=== PATIENT | male | born 1945 | race African-American/Black ===

== ENCOUNTER 2016-09-07 22:59 | Inpatient (IN) | payer OTHER ==
[2016-09-07] MEDS ORDERED: ASPIRIN (CHEWABLE) 81 MG TAB PO ONE (23:13)
--- NOTE | 2016-09-07 23:16 | EDPRACDOC ---
- General Information Chief Complaint: Chest Pain Stated Complaint: RESPIRATORY Time Seen by Provider: 09/07/16 23:12 Home Medications: Home Medications Allopurinol 200 mg PO HS 07/06/15 Artificial Tears 1 drop OS QID 07/06/15 Loratadine 10 mg PO HS 07/06/15 Magnesium Oxide [Mag-Ox] 400 mg PO BID 07/06/15 Ranitidine HCl [Zantac] 300 mg PO BID 07/06/15 Simvastatin [Zocor] 40 mg PO DAILY 07/06/15 Sotalol HCl [Sotalol] 80 mg PO Q12H 07/06/15 Spironolactone [Aldactone] 25 mg PO BID 07/06/15 Tamsulosin HCl [Flomax] 0.8 mg PO QHS 07/06/15 Warfarin Sodium 2 mg PO .Q48H/ALTER/W/1MG 01/15/16 Warfarin Sodium [Coumadin] 1 mg PO .Q48H/A;TER/W/2MG 01/15/16 Albuterol Sulfate [Ventolin Hfa] 2 puff INH QID PRN 03/11/16 Finasteride [Proscar] 5 mg PO HS 03/11/16 Ipratropium [place] [Atrovent] 2 puff INH QID PRN 03/11/16 Metoprolol Succinate (XL) [Toprol Xl] 37.5 mg PO HS 03/11/16 Mometasone/Formoterol [Dulera 200 Mcg/5 Mcg Inhaler] 1 puff INH BID 03/11/16 Torsemide 20 mg PO DAILY 03/11/16 Acetaminophen [Acetaminophen ER] 650 mg PO TID 04/17/16 Colchicine [Colcrys] 0.6 mg PO .[id number] 04/17/16 Allergies/Adverse Reactions: Allergies Allergy/AdvReac Type Severity Reaction Status Date / Time codeine Allergy See Verified 04/17/16 19:21 Comments furosemide [From Lasix] Allergy Rash-Genera Verified 04/17/16 19:21 lized Penicillins Allergy Rash-Genera Verified 04/17/16 19:21 lized - History of Present Illness HPI: PATIENT NOTES CHEST PAIN AND PALPITATIONS TODAY. MILD SOB. DENIES RECENT STRESS TEST. HX OF ATRIAL FIB AND CHF. NOTHING MAKES WORSE. NITRO IMPROVED PAIN AT ALF. Chest Pain Location: Reports: Substernal Pain Radiation: Reports: None Symptoms Occur: Reports: Gradually Cardiac Risk Factors: Reports: Smoker (QUIT IN 1969), Family History, Hyperlipidemia, Hypertension Cardiac History of: Reports: Other (AFIB) PE Risk Factors: Reports: None Medications within 24 Hours: Reports: Nitro Prehospital Care: Reports: SL NTG Pain Came On: Reports: Suddenly Pain Status: Resolved Pain Description: Reports: Pressure Pain Severity: Mild Pain Worsens With: Reports: Nothing Pain Improves With: Reports: Nitroglycerin Associated Signs and Symptoms: Reports: SOB, Palpitations ED Past Medical History - History Reviewed Yes Nurses notes reviewed and agree except as marked Travel Outside of [place] in the Last 3 Months?: No - Patient Medical History Cardiac History: Reports: Atrial Fibrillation, Hypertension, Congestive Heart Failure, Heart Attack, Hypercholesterolemia Respiratory History: Reports: COPD GI/ History: Reports: Renal Disease (CKD STAGE IV) Psychological History: Denies: Depression - Social Medical History Smoking Status: Former smoker ETOH: None Substance Abuse: None Lives In: Other ([facility] EDM Review of Systems - Review of Systems ROS Negative Except as Marked: Yes All systems reviewed and were negative except as marked Constitutional: Fatigue. negative: Chills, Fever, Loss of Appetite, Weakness Eyes: No Symptoms Reported. negative: Redness, Blurred Vision, Double Vision, Discharge, Pain, Light Sensitive, Photophobia Ears: No Symptoms Reported. negative: Pain, Hearing Loss, Drainage, Ear Pulling Throat: No Symptoms Reported. negative: Pain, Swelling Nose: No Symptoms Reported. negative: Congestion, Bleeding, Discharge, Injection, Swelling, Deformity, Ecchymosis, Tender, Abrasion, Laceration Mouth: No Symptoms Reported. negative: Pain, Drooling Respiratory: No Symptoms Reported. negative: Cough, Brassy Cough, Barky Cough, Shortness of Breath, Wheezing, Hemoptysis Cardiovascular: Chest Pain. negative: Cyanosis, Edema, Orthopnea, Palpitations , PND, Syncope, Skin Mottling Gastrointestinal: No Symptoms Reported. negative: Pain, Constipation, Nausea, Vomiting, Diarrhea, Melena, Formula Intolerance Genitourinary: No Symptoms Reported. negative: Dysuria, Hematuria, Frequency, Discharge, Bleeding, Testicular Pain, Neurological: No Symptoms Reported. negative: Headache, Dizziness, Seizure, Numbness, Weakness, Speech Difficulty, Gait Difficulty Musculoskeletal: No Symptoms Reported. negative: Neck, Chestwall, Ribs, Back, Shoulder, Arm, Elbow, Forearm, Wrist, Hand, Pelvis, Hip, Femur, Knee, Leg, Ankle , Foot Integumentary: No Symptoms Reported. negative: Itching, Rash, Bruising, Wound Allergic/Immunologic: No Symptoms Reported. negative: Hives, Itching Hematologic: No Symptoms Reported. negative: Lymphadenopathy, Easy Bruising, Easy Bleeding Endocrine: No Symptoms Reported. negative: Weight Gain, Weight Loss Psychiatric: No Symptoms Reported. negative: Anxiety, Depression, Hallucinations, Insomnia, Suicidal - Physical Exam Constitutional: Alert (Awake), No apparent distress Oriented to: Time, Person, Place Last recorded Vital Signs: Oxygen Pulse Oxygen Saturation O2 Device Oxygen Flow Rate Fraction of Inspired Oxygen ( FIO2) - HEENT Head: Normal ( normocephalic) Eye Exam: Normal (PERRL, EOMI, Sclera white) Oropharynx: Normal (Pharynx:Moist without exudate,Gums-no swelling) Tympanic Membrane: Normal ENT EAC: Normal TMJ: Normal Nose: No Symptoms Reported (septum midline) Neck: Normal (FROM, trachea at midline) - Respiratory/Cardiovascular Respiratory: Normal - CTA (BBS clear to auscultation without adventitious sounds ) Cardiovascular: Normal (RRR without murmur, gallop or rub) - GI Auscultation: Normal (NABS) Palpation: Normal (Soft,No rebound or guarding, non distended) Tenderness: Non tender Dunlap's Sign: Negative - Musculoskeletal Back: Normal (Non-Tender) Extremities: Normal (Normal tone, Pulses 2+ No cyanosis or edema, FROM) - Integumentary Skin: Normal, Warm, Dry Lymphatics: Normal (no adenopathy) - Neurologic Memory Impaired: Normal Motor Function: Normal (Normal tone, Pulses 2+ No cyanosis or edema, FROM) Cranial Nerve: Normal (CN II-X11 intact sensation, strength 5/5) Cerebellar: Normal Mood Description: Normal Perception: Normal - Differential Diagnosis Angina - Action ASA given in the ED: Yes - Results 09/07/16 23:30 09/07/16 23:30 - EKG EKG #1 EKG Time: 23:19 -: Yes EKG interpreted by me Rate: bpm: 83 Morris: LAD Rhythm: NSR, PVCs Block: IVCD Hypertrophy: None ST: Normal - Departure Yes I personally saw and evaluated the patient. Disposition: Admit IP To This Hospital Condition: Stable Final Diagnosis: Unstable angina CHF (congestive heart failure) Qualifiers: Congestive heart failure type: unspecified congestive heart failure type Congestive heart failure chronicity: acute Qualified Code(s): I50.9 - Heart failure, unspecified Instructions: Chest Pain (ED), *Heart Failure (Activity, Diet, Worsening Symptoms, Weight Monitoring)(ED) Education/Counseling Given To: Patient Education/Counseling Given Regarding: Diagnosis, Treatment, Prognosis Decision to Admit Time: 00:00 Decision to admit date: 09/08/16 Decision to admit: from ED - Physician Consulted Hospitalist Time Called: 00:00 Provider Called: Suraj Schaeffer Time License Registration Examiner Returned Call: 00:00
[2016-09-07 23:37] LABS: AUTOMATED BASOPHIL 1.3 % (0-2); AUTOMATED EOSINOPHIL 4.5 % (0-5); AUTOMATED LYMPH 33.4 % (17-44); AUTOMATED MONOCYTE 11.1 % (3-10); AUTOMATED NEUTROPHIL 49.7 % (45-76); MPV 9.9 fL (7.4-10.4)
[2016-09-07 23:46] LABS: CALCIUM 8.9 MG/DL (8.4-10.2); CREATININE 1.9 MG/DL (0.66-1.25); TOTAL PROTEIN 6.5 G/DL (6.3-8.2)
[2016-09-07 23:47] LABS: PARTIAL THROMB. TIME 28.9 SEC (22-35); PT-INR 1.5
--- NOTE | 2016-09-07 23:56 | DIRPT ---
CLINICAL DATA: Subacute onset of generalized chest pain and tachycardia. Initial encounter. EXAM: PORTABLE CHEST 1 VIEW COMPARISON: Chest radiograph performed 04/17/2016 FINDINGS: The lungs are well-aerated. Mild vascular congestion is noted. There is no evidence of focal opacification, pleural effusion or pneumothorax. The cardiomediastinal silhouette is borderline enlarged. A pacemaker/AICD is noted overlying the left chest wall, with leads ending overlying the right atrium and right ventricle. No acute osseous abnormalities are seen. IMPRESSION: Mild vascular congestion and borderline cardiomegaly. Lungs remain grossly clear. Electronically Signed By: Tremaine Apple M.D. On: 09/07/2016 23:53
[2016-09-08] MEDS ORDERED: ENOXAPARIN 30 MG/0.3 ML PFS SQ SCH
[2016-09-08] MEDS ORDERED: ENOXAPARIN 100 MG PFS SQ SCH
[2016-09-08] MEDS ORDERED: FUROSEMIDE 40 MG/4 ML VIAL IV ONE (00:01)
--- NOTE | 2016-09-08 01:29 | HISTPHYS ---
- Chief Complaint chest pain - History of Present Illness PRIMARY CARE PROVIDER: [facility] physician HPI: The patient is a 71 yo man who presents with sudden palpitations and heart not feeling right, along with shortness of breath and chest pressure. He has had episodes before, first one after Echo, and he did see the doctor; the doctor did not change any of his medication, he did tell him to take 2 nitroglycerin tabs whenever it started. He said he usually noticed it when he was in bed, and that he would notice that the bed was rocking and then he would realize that he was causing the rocking because his heart was beating so hard. Tonight he had another episode, and he took 2 nitroglycerin pills but it didn't stop, so he came to the emergency department. He felt a pressure/heaviness in his chest. Onset: This episode started overnight, but he has had previous episodes not as severe over the last 2-3 weeks. Duration: intermittent. Location: substernal. Radiation: none. Character: 09/03. Pressure/heaviness. Alleviated by: Nothing. Exacerbated by: Nothing. Associated Symptoms: Shortness of breath. No diaphoresis. Fatigue and generalized weakness today. No fever or chills. Has felt hot today. No weight gain or swelling in legs. Nausea today but no vomiting. Intermittent mild coughing and wheezing. Has felt like he has had increased abdominal girth lately and notes his pants are tighter. Treatments: none at home except usual medications. The patient reports he has CHF and has had worsening shortness of breath with increased abdominal girth. He reports his heart issues were severe enough that he was on the transplant list many years ago but removed himself from the list when his friend had a heart transplant and shortly thereafter. - Medical History Cardiac History: Reports: Coronary Artery Disease, Hypertension, Congestive Heart Failure (systolic. Severe enough he was on transplant list.), Cardiac Catheterization ([facility] in [place] and [facility]. Approx 2011 and 2012.), Hypercholesterolemia, Pacemaker (2nd pacemaker in May 2009 at [facility] GI/ History: Reports: Renal Disease (CKD stage 3. Baseline Cr 1.5-2.), BPH Psychological History: Denies: Depression - Surgical History Reports: Cardiac Catheterization (and 2nd pacemaker May 2009 in [place], [place]) - Medictions/Allergies Allergies codeine Allergy (Verified 09/08/16 00:08) See Comments effects kidneys furosemide [From Lasix] Allergy (Verified 09/08/16 00:08) Rash-Generalized Penicillins Allergy (Verified 09/08/16 00:08) Rash-Generalized Current Medication List: Reviewed Home Medications Allopurinol 200 mg PO HS 07/06/15 Artificial Tears 1 drop OS QID 07/06/15 Loratadine 10 mg PO HS 07/06/15 Magnesium Oxide [Mag-Ox] 400 mg PO BID 07/06/15 Ranitidine HCl [Zantac] 300 mg PO BID 07/06/15 Simvastatin [Zocor] 40 mg PO DAILY 07/06/15 Sotalol HCl [Sotalol] 80 mg PO Q12H 07/06/15 Spironolactone [Aldactone] 12.5 mg PO BID 07/06/15 Tamsulosin HCl [Flomax] 0.8 mg PO QHS 07/06/15 Warfarin Sodium 2 mg PO .Q48H/ALTER/W/1MG 01/15/16 Warfarin Sodium [Coumadin] 1 mg PO .Q48H/ALTER/W/2MG 01/15/16 Albuterol Sulfate [Ventolin Hfa] 2 puff INH QID PRN 03/11/16 Finasteride [Proscar] 5 mg PO DAILY 03/11/16 Ipratropium [place] [Atrovent] 2 puff INH QID PRN 03/11/16 Metoprolol Succinate (XL) [Toprol Xl] 37.5 mg PO HS 03/11/16 Mometasone/Formoterol [Dulera 200 Mcg/5 Mcg Inhaler] 1 puff INH BID 03/11/16 Torsemide 10 mg PO BID 03/11/16 Acetaminophen [Acetaminophen ER] 650 mg PO TID 04/17/16 Colchicine [Colcrys] 0.6 mg PO .[id number] 04/17/16 - Family History Reports: Hypertension (Mother), Cardiac Disorders (Mother: CHF), Other ( Grandfather in sleep.) - Social History Smoking Status: Former smoker (Quit .) Social History: Denies: Alcohol Use (occasional), Substance Use Disorder - Review of Systems GENERAL: No Fever, chills, or diaphoresis. Positive for fatigue/malaise. HEENT: No ear pain or discharge. No nasal discharge or bleeding. No throat pain or swelling. No eye pain or eye redness. RESPIRATORY: Intermittent mild coughing and wheezing. Shortness of breath. CARDIOVASCULAR: Chest pain and palpitations. GI: Nausea today but no vomiting. No abdominal pain, nausea, vomiting, diarrhea , constipation, or bloody stool. NEUROLOGICAL: No headache or focal weakness. INTEGUMENT: no rashes, itching, or lesions. LYMPHATIC SYSTEM: no lymph node swelling or pain. MUSCULOSKELETAL: no pain or joint swelling. GENITOURINARY: No dysuria or hematuria. ENDOCRINE: No polyuria or polydipsia. HEME: No chronic anemia, bleeding, or easy bruising. - Physical Exam Vital Signs: Initial Vitals Temperature 97.5 F 09/07/16 23:20 Pulse Rate 75 09/07/16 23:20 Respiratory Rate 20 09/07/16 23:20 Blood Pressure 101/57 L 09/07/16 23:20 Pulse Oxygen Saturation 98 09/07/16 23:20 Vital Signs - 24 hr 09/07/16 23:20 Temperature 97.5 F Pulse Rate 75 Respiratory 20 Rate Blood Pressure 101/57 L Pulse Oxygen 98 Saturation Weight: 88.5 kg Height: 5 feet 11 inches BMI: 27.2 - Other Exam Other Exam Findings: GENERAL: Ill-appearing, well nourished, in acute distress. HEENT: Normocephalic, atraumatic; pupils equal and round. Nares patent, without discharge or bleeding. No oropharyngeal lesions or erythema. Mucous membranes are dry. NECK: is supple, no masses, trachea midline. RESPIRATORY: Clear to auscultation bilaterally. Chest wall movements are symmetric. No use of accessory muscles to breathe. No rhonchi. Decreased breath sounds in bases. Faint rales. CARDIOVASCULAR: Normal S1, S2. Murmur 3/6 systolic. No rubs, or gallops. PMI non -displaced. Carotids: no carotid bruits. No bradycardia or tachycardia. DP pulses decreased but palpable bilaterally. GI: soft, nontender, non-distended, normal active bowel sounds. No hepatosplenomegaly. INTEGUMENT: Clean, dry, and intact. No rashes. Faint ecchymoses over upper aspect of back, linear and extending from lateral left to mid right back. MUSCULOSKELETAL: Moving all extremities. No cyanosis. No clubbing. Edema: none bilaterally. NEUROLOGICAL: Cranial nerves 2-12 grossly intact. Motor 5/5 throughout. Reflexes : 2+ bilaterally. Babinski: toes downgoing bilaterally. Intact Finger to nose. Sensory grossly intact to light touch. Intact rapid alternating movements bilaterally. No pronator drift. PSYCHIATRIC: Fully oriented. Normal and appropriate affect. LYMPHATIC: No cervical lymphadenopathy. No supraclavicular lymphadenopathy. - Lab Results Laboratory Results - last 24 hr 09/07/16 09/07/16 09/07/16 23:30 23:30 23:30 WBC 6.9 RBC 5.23 Hgb 13.4 L Hct 41.2 L MCV 79 L MCH 25.7 L MCHC 32.6 L RDW 17.7 H Plt Count 165 MPV 9.9 Neut % (Auto) 49.7 Lymph % (Auto) 33.4 Vance % (Auto) 11.1 H Eos % (Auto) 4.5 Baso % (Auto) 1.3 Absolute Neuts (auto) 3.38 Absolute Lymphs (auto) 2.28 PT 15.3 H INR 1.5 APTT 28.9 Sodium 141 Potassium 3.2 L Chloride 101 Carbon Dioxide 27 Anion Gap 16 BUN 32 H Creatinine 1.90 H Estimated GFR (MDRD) 42 L Glucose 106 H Calculated Osmolality 278 Calcium 8.9 Corrected Calcium 9.0 Total Bilirubin 1.3 AST 16 L ALT 28 Alkaline Phosphatase 61 Troponin I 0.01 Fgd-[id number]-Izfxairzlyh Pept 7360 H Total Protein 6.5 Albumin 3.9 - Diagnostic Findings DIAGNOSTIC DATA: EK bpm. Sinus rhythm with first-degree AV block with frequent PVCs and fusion complexes. Left axis deviation. Incomplete right bundle branch block. Septal infarct, age undetermined. T-wave abnormality, consider lateral ischemia. T-wave inversion in lead 1. Minimal ST depression in leads V5 and V6. Reviewed EKG personally. IMAGING: Chest x-ray, viewed personally: EXAM: PORTABLE CHEST 1 VIEW COMPARISON: Chest radiograph performed 04/17/2016 FINDINGS: The lungs are well-aerated. Mild vascular congestion is noted. There is no evidence of focal opacification, pleural effusion or pneumothorax. The cardiomediastinal silhouette is borderline enlarged. A pacemaker/AICD is noted overlying the left chest wall, with leads ending overlying the right atrium and right ventricle. No acute osseous abnormalities are seen. IMPRESSION: Mild vascular congestion and borderline cardiomegaly. Lungs remain grossly clear. - Assessment (1) Acute on chronic systolic congestive heart failure I50.23 - ACUTE ON CHRONIC SYSTOLIC (CONGESTIVE) HEART FAILURE Acute Present on Admission: Yes The patient reports he has CHF and has had worsening shortness of breath with increased abdominal girth. He reports his heart issues were severe enough that he was on the transplant list many years ago but removed himself from the list when his friend had a heart transplant and shortly thereafter. The patient has both acute and chronic heart failure. The acute component is thought to be mild. Heart failure type: presumed systolic. Echocardiogram results from past: none available. Plan: Admit to PCU with telemetry. CHF order set. Diet of 2 g Na. Daily weights with strict I/O's. No IVF unless patient is NPO. As tolerated, give beta eb, OLEG inhibitor or ARB. NO LASIX due to documented allergy causing rash. He is able to take torsemide, so will increase his home dose. Replace potassium. Monitor heart rate, blood pressure, and respiratory status carefully. Provide support with oxygen as needed. Provide teaching regarding heart failure, 2g Na diet, daily weights, signs of acute heart failure. (2) Chest pain R07.9 - CHEST PAIN, UNSPECIFIED Acute Present on Admission: Yes Rule out myocardial infarction. Plan: Obtain cardiac enzymes x 3. Place patient on telemetry. Give patient oxygen, aspirin. Give nitroglycerin, and morphine as needed for chest pain. Give statin. Stress test has been ordered for the morning. Patient has been advised, if the stress test is negative, to follow up with the primary care provider for evaluation of other potential causes of the chest pain. (3) Anticoagulant long-term use Z79.01 - DIRECTOR OF PHYSICAL EDUCATION (CURRENT) USE OF ANTICOAGULANTS Acute Present on Admission: Yes Takes warfarin for a fib. INR 1.5 on admission. Plan: Increase warfarin dose. Will give low dose lovenox in addition until INR is 2. Daily INR. (4) Hypokalemia E87.6 - HYPOKALEMIA Acute Present on Admission: Yes Replace potassium with KCl. Check magnesium level and replace as needed. (5) Chronic kidney disease, stage 3, mod decreased GFR N18.3 - CHRONIC KIDNEY DISEASE, STAGE 3 (MODERATE) Chronic Present on Admission: Yes Baseline Cr is 1.5 -2. Admission Cr is 1.9. Plan: Avoid nephrotoxins. Add OLEG inhibitor if blood pressure is not too low. (6) Dyspnea on exertion R06.09 - OTHER FORMS OF DYSPNEA Acute Present on Admission: Yes Acute on chronic issue. Patient is concerned about his gradually worsening dyspnea, especially with exertion. Plan: Echocardiogram. - Plan * Patient had cardiac catheterizations and possibly an echocardiogram at [facility] and [facility] in 2011 and 2012. Requested records. Case Care Discussed with: Patient, Nursing Staff Total Time: 60 min
[2016-09-08] MEDS ORDERED: NITROGLYCERINE 0.4 MG TAB SL PRN (01:30)
[2016-09-08] MEDS ORDERED: POTASSIUM CHLORIDE 20 MEQ TAB PO ONE (01:35)
[2016-09-08] MEDS ORDERED: BENZONATATE 100 MG PERLES PO PRN (03:06)
[2016-09-08] MEDS ORDERED: SIMETHICONE 80 MG TAB PO PRN (03:06)
[2016-09-08] MEDS ORDERED: Docusate Sodium 100 MG CAP PO PRN (03:06)
[2016-09-08] MEDS ORDERED: BISACODYL 5 MG TAB PO PRN (03:06)
[2016-09-08] MEDS ORDERED: ONDANSETRON HCL 4 MG/2 ML VIAL IV PRN (03:06)
[2016-09-08] MEDS ORDERED: ACETAMINOPHEN 325 MG/TAB TABLET PO PRN (03:06)
[2016-09-08] MEDS ORDERED: SENNA CONCENTRATE TAB PO PRN (03:06)
[2016-09-08] MEDS ORDERED: ACETAMINOPHEN 325 MG SUPP PR PRN (03:06)
[2016-09-08] MEDS ORDERED: TEMAZEPAM 15 MG CAP PO PRN (03:06)
[2016-09-08] MEDS ORDERED: PROMETHAZINE 25 MG/ML VIAL IV PRN (03:06)
[2016-09-08] MEDS ORDERED: GUAIFEN 100 MG-DEXTROMETH 10 MG PER 5 ML PO PRN (03:06)
[2016-09-08] MEDS ORDERED: MORPHINE 2 MG/ML INJECTION IV PRN (03:07)
[2016-09-08] MEDS ORDERED: ALBUTEROL 0.083% 3 ML NEB NEB PRN (03:10)
[2016-09-08] MEDS ORDERED: Albuterol/Ipratropium Neb 3 ML NEB NEB PRN (03:10)
[2016-09-08] MEDS ORDERED: Pharmacy Order Set Alert SCH ×2 (04:00)
[2016-09-08] MEDS ORDERED: ENOXAPARIN 40 MG/0.4 ML PFS SQ SCH ×3 (04:00→05:00)
[2016-09-08] MEDS ORDERED: ARTIFICIAL TEARS OPH SOLN 15 ML OS SCH (05:00)
[2016-09-08 05:31] LABS: MPV 9.6 fL (7.4-10.4)
[2016-09-08 05:41] LABS: PT-INR 1.5
[2016-09-08 05:42] LABS: BLOOD UREA NITROGEN 32 MG/DL (9-20); CALCIUM 9.1 MG/DL (8.4-10.2); CALCULATED OSMOLALITY 278 MOs/Kg (270-290); CHLORIDE 102 mEq/L (98-107); GLUCOSE 98 MG/DL (70-99); LDL (calc.) 25.8 MG/DL (<100); SODIUM LEVEL 141 mEq/L (137-146); VLDL (calc.) 24.2 MG/DL (5-40)
[2016-09-08 05:44] VITALS: BMI 26.4
[2016-09-08] MEDS ORDERED: Vaccine Screening Complete SCH (06:00)
[2016-09-08] MEDS ORDERED: SOTALOL HCL 80 MG TAB PO SCH (07:00)
[2016-09-08] MEDS ORDERED: ASPIRIN 325 MG TAB PO SCH (08:00)
[2016-09-08] MEDS ORDERED: BUDESONIDE 0.5 MG NEB NEB SCH (08:00)
--- NOTE | 2016-09-08 08:43 | CAPUEKG ---
[place], [place] Test Date: 2016-09-08 Pat Name: QUANG PEDROZA Department: Room: 440 Gender: Male Technical Sales Support Specialist: : Requested By: Order Number: Reading MD: Eliud Muller MD Measurements Intervals [place] Rate: 74 P: 56 [place]: 240 QRS: -46 QRSD: 96 T: 57 QT: 454 QTc: 503 Interpretive Statements Sinus rhythm with 1st degree AV block with occasional premature ventricular complexes Left axis deviation Low voltage QRS Septal infarct, age undetermined Possible Lateral infarct, age undetermined Prolonged QT Abnormal ECG Electronically Signed On 09-08-16 08:42:26 EST by Eliud Muller MD [id number]> [id number]
[2016-09-08] MEDS ORDERED: [UNRECOGNIZED DRUG - OTHER] INH SCH (09:00)
[2016-09-08] MEDS ORDERED: ATORVASTATIN 40 MG TAB PO SCH (09:00)
[2016-09-08] MEDS ORDERED: FINASTERIDE 5 MG TAB PO SCH (09:00)
[2016-09-08] MEDS ORDERED: RANITIDINE 150 MG TAB PO SCH (09:00)
[2016-09-08] MEDS ORDERED: SPIRONOLACTONE 25 MG TAB PO SCH (09:00)
[2016-09-08] MEDS ORDERED: RANITIDINE HCL 300 MG PO SCH (09:00)
[2016-09-08] MEDS ORDERED: FORMOTEROL INH SCH (09:00)
[2016-09-08] MEDS ORDERED: LISINOPRIL 2.5 MG TAB PO SCH (09:00)
[2016-09-08] MEDS ORDERED: WARFARIN EDUCATION DOCUMENTATION ONE (09:00)
[2016-09-08] MEDS ORDERED: MOMETASONE INH SCH (09:00)
--- NOTE | 2016-09-08 10:27 | CAPUECHO ---
INDICATION: CHF/MURMUR HEIGHT: 180.3 cm (5 ft 11.0 in) WEIGHT: 88.5 kg (195.0 lbs) BP: 104/68 BSA: 2.006258 m MEASUREMENTS 2D RVIDd: 5.0 cm LVOT Diam: 2.1 cm EF Biplane: 34.70 % LAESV MOD A4C: 60.9 ml LAESV MOD A2C: 120.7 ml LAESV Index (A-L): 45.32 ml/m M-MODE IVSd: 0.9 cm LVIDd: 7.0 cm LVPWd: 0.9 cm LVIDs: 6.3 cm EF(Teich): 21 % Ao Diam: 3.0 cm LA Diam: 4.6 cm DOPPLER MV E Alexandru: 0.80 m/s MV A Alexandru: 0.00 m/s MV PHT: 27.80 ms MVA By PHT: 7.91 cm LVOT Vmax: 0.69 m/s AV Vmax: 1.04 m/s TR Vmax: 2.96 m/s TR maxP mmHg RVSP: 50.27 mmHg FINDINGS ------- Procedure:2D images, m-mode, color and spectral Doppler were obtained and reviewed. Study quality:This was a technically adequate study. Left Ventricle:The left ventricle is severely dilated. Overall left ventricular systolic function is severely impaired with, an EF < 20%. Right Ventricle:The right ventricle is moderately enlarged. Pacer wire present. Left Atrium:The left atrium is moderately dilated. Right Atrium:The right atrium is moderately enlarged. Electronic pacemaker lead seen in the right atrial cavity. Aortic Valve:The aortic valve is trileaflet and appears structurally normal. There is mild aortic valve sclerosis. Trace amount of aortic regurgitation. Mitral Valve:Normal appearing mitral valve. Moderate mitral regurgitation is present. Tricuspid Valve:The tricuspid valve appears structurally normal. Aymr-[id number] tricuspid regurg itation present. The right ventricular systolic pressure, as measured by Doppler, is 50 mmhg. Pulmonic Valve:The pulmonic valve is normal. Trace/mild (physiologic) pulmonic regurgitation. Aorta:The aortic root, ascending aorta and aortic arch appear normal. IVC:Normal inferior vena cava with normal inspiratory collapse. Pericardium:There is no pericardial effusion. CONCLUSIONS 1. The left ventricle is severely dilated. 2. Overall left ventricular systolic function is severely impaired with, an EF < 20%. 3. The right ventricle is moderately enlarged. Pacer wire present. 4. The left atrium is moderately dilated. 5. The right atrium is moderately enlarged. 6. Moderate mitral regurgitation is present. 7. Zwfa-[id number]-[id number] tricuspid regurgitation present. 8. The right ventricular systolic pressure, as measured by Doppler, is 50 mmhg. Electronically Signed By: Eliud Muller MD -- Electronically Signed On: 10:26:15
[2016-09-08] MEDS ORDERED: REGADENOSON 0.4 MG/5 ML SYRINGE IV ONE (11:00)
[2016-09-08] MEDS ORDERED: SODIUM CHLORIDE 0.9% 10 ML FLUSH FLUSH ONE (11:00)
[2016-09-08] MEDS ORDERED: SESTAMIBI 8 MCI V IV ONE (11:57)
[2016-09-08] MEDS ORDERED: MAGNESIUM OXIDE 400 MG TAB PO SCH (12:00)
[2016-09-08 13:34] VITALS: BP 104/58; TEMP 98
[2016-09-08] MEDS: ARTIFICIAL TEARS OPH SOLN 15 ML OS SCH ×3 (13:36→15:08)
[2016-09-08] MEDS: TORSEMIDE 20 MG TAB PO SCH ×2 (13:37→15:08)
--- NOTE | 2016-09-08 14:15 | PCM.DCS92 ---
- Final/Secondary Discharge Diagnosis (1) Acute on chronic systolic congestive heart failure Acute I50.23 - ACUTE ON CHRONIC SYSTOLIC (CONGESTIVE) HEART FAILURE Present on Admission: Yes Comment: The patient reports he has CHF and has had worsening shortness of breath with increased abdominal girth. He reports his heart issues were severe enough that he was on the transplant list many years ago but removed himself from the list when his friend had a heart transplant and shortly thereafter. The patient has both acute and chronic heart failure. The acute component is thought to be mild. Heart failure type: presumed systolic. Echocardiogram results from past: none available. Plan: Admit to PCU with telemetry. CHF order set. Diet of 2 g Na. Daily weights with strict I/O's. No IVF unless patient is NPO. As tolerated, give beta eb, OLEG inhibitor or ARB. NO LASIX due to documented allergy causing rash. He is able to take torsemide, so will increase his home dose. Replace potassium. Monitor heart rate, blood pressure, and respiratory status carefully. Provide support with oxygen as needed. Provide teaching regarding heart failure, 2g Na diet, daily weights, signs of acute heart failure. (2) Anticoagulant long-term use Acute Z79.01 - CORRECTION (CURRENT) USE OF ANTICOAGULANTS Present on Admission: Yes Comment: Takes warfarin for a fib. INR 1.5 on admission. Plan: Increase warfarin dose. Will give low dose lovenox in addition until INR is 2. Daily INR. (3) Chest pain Acute R07.9 - CHEST PAIN, UNSPECIFIED Present on Admission: Yes Comment: Rule out myocardial infarction. Plan: Obtain cardiac enzymes x 3. Place patient on telemetry. Give patient oxygen, aspirin. Give nitroglycerin, and morphine as needed for chest pain. Give statin. Stress test has been ordered for the morning. Patient has been advised, if the stress test is negative, to follow up with the primary care provider for evaluation of other potential causes of the chest pain. (4) Chronic kidney disease, stage 3, mod decreased GFR Chronic N18.3 - CHRONIC KIDNEY DISEASE, STAGE 3 (MODERATE) Present on Admission: Yes Comment: Baseline Cr is 1.5 -2. Admission Cr is 1.9. Discharge Disposition: Senior Care Discharge Condition: Improved Cognitive Discharge Status: Unimpaired Fuctional Discharge Status: Independent Physician Follow up/Referrals: None,No Provider [Family Provider] - 3-4 Days (FOLLOW UP WITH THE [facility] DOCTOR IN 4 DAYS) New Prescriptions: Enoxaparin Sodium [Lovenox] 130 mg SQ .DAILY 6 Days Warfarin Sodium 2 mg PO QAM #30 tablet Discharge Home Medication List Allopurinol 200 mg PO HS 07/06/15 [History Confirmed 09/08/16 Last Taken ] Artificial Tears 1 drop OS QID 07/06/15 [History Confirmed 09/08/16 Last Taken 04/17/16] Loratadine 10 mg PO HS 07/06/15 [History Confirmed 09/08/16 Last Taken 04/16/16] Magnesium Oxide [Mag-Ox] 400 mg PO BID 07/06/15 [History Confirmed 09/08/16 Last Taken 04/17/16] Ranitidine HCl [Zantac] 300 mg PO BID 07/06/15 [History Confirmed 09/08/16 Last Taken 04/17/16] Simvastatin [Zocor] 40 mg PO DAILY 07/06/15 [History Confirmed 09/08/16 Last Taken 04/17/16] Sotalol HCl [Sotalol] 80 mg PO Q12H 07/06/15 [History Confirmed 09/08/16 Last Taken 09/07/16 19:00] Spironolactone [Aldactone] 12.5 mg PO BID 07/06/15 [History Confirmed 09/08/16 Last Taken 04/17/16] Tamsulosin HCl [Flomax] 0.8 mg PO QHS 07/06/15 [History Confirmed 09/08/16 Last Taken 04/16/16] Albuterol Sulfate [Ventolin Hfa] 2 puff INH QID PRN 03/11/16 [History Confirmed 09/08/16 Last Taken Unknown] Finasteride [Proscar] 5 mg PO DAILY 03/11/16 [History Confirmed 09/08/16 Last Taken 04/16/16] Ipratropium [place] [Atrovent] 2 puff INH QID PRN 03/11/16 [History Confirmed Last Taken 03/11/16] Metoprolol Succinate (XL) [Toprol Xl] 37.5 mg PO HS 03/11/16 [History Confirmed 09/08/16 Last Taken 04/16/16] Mometasone/Formoterol [Dulera 200 Mcg/5 Mcg Inhaler] 1 puff INH BID 03/11/16 [ History Confirmed 09/08/16 Last Taken 04/17/16] Torsemide 10 mg PO BID 03/11/16 [History Confirmed 09/08/16 Last Taken 04/17/16] Acetaminophen [Acetaminophen ER] 650 mg PO TID 04/17/16 [History Confirmed 09/08 Last Taken 04/17/16] Colchicine [Colcrys] 0.6 mg PO .[id number] 04/17/16 [History Confirmed 09/08/16 Last Taken Unknown] Enoxaparin Sodium [Lovenox] 130 mg SQ .DAILY 6 Days 09/08/16 [Rx Last Taken Unknown] Warfarin Sodium 2 mg PO QAM #30 tablet 09/08/16 [Rx Last Taken Unknown] 09/08/16 05:20 09/08/16 05:20 Laboratory Results - last 24 hr 09/07/16 09/07/16 09/07/16 23:30 23:30 23:30 WBC 6.9 RBC 5.23 Hgb 13.4 L Hct 41.2 L MCV 79 L MCH 25.7 L MCHC 32.6 L RDW 17.7 H Plt Count 165 MPV 9.9 Neut % (Auto) 49.7 Lymph % (Auto) 33.4 Russell % (Auto) 11.1 H Eos % (Auto) 4.5 Baso % (Auto) 1.3 Absolute Neuts (auto) 3.38 Absolute Lymphs (auto) 2.28 PT 15.3 H INR 1.5 APTT 28.9 Sodium 141 Potassium 3.2 L Chloride 101 Carbon Dioxide 27 Anion Gap 16 BUN 32 H Creatinine 1.90 H Estimated GFR (MDRD) 42 L Glucose 106 H Calculated Osmolality 278 Calcium 8.9 Corrected Calcium 9.0 Magnesium Total Bilirubin 1.3 AST 16 L ALT 28 Alkaline Phosphatase 61 Troponin I 0.01 [id number] Pept 7360 H Total Protein 6.5 Albumin 3.9 Triglycerides Cholesterol LDL Cholesterol, Calc VLDL Cholesterol, Calc HDL Cholesterol Cholesterol/HDL Ratio 09/08/16 09/08/16 09/08/16 02:40 02:45 05:20 WBC RBC Hgb Hct MCV MCH MCHC RDW Plt Count MPV Neut % (Auto) Lymph % (Auto) Russell % (Auto) Eos % (Auto) Baso % (Auto) Absolute Neuts (auto) Absolute Lymphs (auto) PT INR APTT Sodium Potassium Chloride Carbon Dioxide Anion Gap BUN Creatinine Estimated GFR (MDRD) Glucose Calculated Osmolality Calcium Corrected Calcium Magnesium 1.90 Total Bilirubin AST ALT Alkaline Phosphatase Troponin I < 0.01 < 0.01 [id number] Pept Total Protein Albumin Triglycerides Cholesterol LDL Cholesterol, Calc VLDL Cholesterol, Calc HDL Cholesterol Cholesterol/HDL Ratio 09/08/16 09/08/16 09/08/16 05:20 05:20 05:20 WBC 8.0 RBC 5.11 Hgb 13.0 L Hct 40.3 L MCV 79 L MCH 25.4 L MCHC 32.2 L RDW 17.6 H Plt Count 153 MPV 9.6 Neut % (Auto) Lymph % (Auto) Russell % (Auto) Eos % (Auto) Baso % (Auto) Absolute Neuts (auto) Absolute Lymphs (auto) PT 15.2 H INR 1.5 APTT Sodium 141 Potassium 3.6 Chloride 102 Carbon Dioxide 26 Anion Gap 17 H BUN 32 H Creatinine 1.70 H Estimated GFR (MDRD) 48 L Glucose 98 Calculated Osmolality 278 Calcium 9.1 Corrected Calcium Magnesium 1.80 Total Bilirubin AST ALT Alkaline Phosphatase Troponin I Fkr-H-Cicicwogqyv Pept Total Protein Albumin Triglycerides 121 Cholesterol 91 L LDL Cholesterol, Calc 25.8 VLDL Cholesterol, Calc 24.2 HDL Cholesterol 41.0 Cholesterol/HDL Ratio 2.2 O2 Device: Room Air Diet at Discharge: Cardiac Activity: As Tolerated Discontinue use of:: Alcohol, All Illegal Substances, All Types of Tobacco - DC Summary Notes HPI/Notes: The patient is a 71 yo man who presents with sudden palpitations and heart not feeling right, along with shortness of breath and chest pressure. He has had episodes before, first one after Echo, and he did see the doctor; the doctor did not change any of his medication, he did tell him to take 2 nitroglycerin tabs whenever it started. He said he usually noticed it when he was in bed, and that he would notice that the bed was rocking and then he would realize that he was causing the rocking because his heart was beating so hard. Tonight he had another episode, and he took 2 nitroglycerin pills but it didn't stop, so he came to the emergency department. He felt a pressure/heaviness in his chest. Onset: This episode started overnight, but he has had previous episodes not as severe over the last 2-3 weeks. Duration: intermittent. Location: substernal. Radiation: none. Character: 09/03. Pressure/heaviness. Alleviated by: Nothing. Exacerbated by: Nothing. Associated Symptoms: Shortness of breath. No diaphoresis. Fatigue and generalized weakness today. No fever or chills. Has felt hot today. No weight gain or swelling in legs. Nausea today but no vomiting. Intermittent mild coughing and wheezing. Has felt like he has had increased abdominal girth lately and notes his pants are tighter. Treatments: none at home except usual medications. The patient reports he has CHF and has had worsening shortness of breath with increased abdominal girth. He reports his heart issues were severe enough that he was on the transplant list many years ago but removed himself from the list when his friend had a heart transplant and shortly thereafter. Hospital Course Note:: Discharge summary on patient named QUANG PEDROZA admitted to [facility] on 09/08/16 by Suraj Schaeffer MD. Date of discharge is 08/08/17. HE IS ADMITTED WITH CHEST PAIN AND SHORTNESS BREATH. Had an echocardiogram showed the ejection fraction 20% and is nuclear stress test was negative for ischemia. Feeling much better he is ready go back to the detention. Unfortunately his INR is 1.5 on on 2 mg alternating with 1 mg Coumadin daily so I took the liberty of increasing his Coumadin to 2 mg every day. This will need to be readdressed, but in the meantime he will be on Lovenox injections 130 mg subcu daily until his INR is therapeutic. Weigh daily his weight increased by more than 3 lb within a week he has to double his dose torsemide until his weight is back down to what it should be at time of discharge. Please chart weight today and place it in his detention record and make that the target weight. CC: [facility]. Total Time: 38 MIN Code: 92773 (>30min.) - Physical Exam Vital Signs: Last Vital Signs Temp 98.0 F 09/08/16 13:33 Pulse 80 09/08/16 13:33 Resp 20 09/08/16 13:33 BP 104/58 L 09/08/16 13:33 Pulse Ox 96 09/08/16 13:33 Oxygen Pulse Oxygen Saturation 96 O2 Device Room Air Oxygen Flow Rate Fraction of Inspired Oxygen ( FIO2) Constitutional: Alert (Awake), No apparent distress Oriented to: Time, Person, Place - HEENT Head: Normal ( normocephalic) Eye: Normal (PERRL, EOMI, Sclera white) Oropharynx: Normal (Pharynx:Moist without exudate,Gums-no swelling) Tympanic Membrane: Normal ENT EAC: Normal TMJ: Normal Nose: No Symptoms Reported (septum midline) - Respiratory/Cardiovascular Respiratory: Normal - CTA (BBS clear to auscultation without adventitious sounds ) Cardiovascular: Normal (RRR without murmur, gallop or rub) - GI Auscultation: Normal (NABS) Palpation: Normal (Soft,No rebound or guarding, non distended) Tenderness: Non tender Dunlap's Sign: Negative - Musculoskeletal Back: Normal (Non-Tender) Extremities: Normal (Normal tone, Pulses 2+ No cyanosis or edema, FROM) - Integumentary Skin: Normal, Warm, Dry Lymphatics: Normal (no adenopathy) - Neurologic Memory Impaired: Normal Motor Function: Normal (Motor 5/5 throughout.Normal tone, Pulses 2+ No cyanosis or edema, FROM) Cranial Nerve: Normal (CN II-XII intact sensation, strength 5/5) Cerebellar: Normal Mood Description: Normal Thought: Coherent Perception: Normal
[2016-09-08] MEDS ORDERED: ENOXAPARIN 80 MG/0.8 ML PFS SQ ONE (14:25)
[2016-09-08] MEDS ORDERED: ENOXAPARIN 100 MG PFS SQ ONE (15:00)
[2016-09-08 15:30] VITALS: PULSE 80
[2016-09-08] MEDS ORDERED: This patient is receiving warfarin therapy SCH (16:30)
--- NOTE | 2016-09-08 17:08 | CAPUCARD ---
LEXISCAN SESTAMIBI REST STRESS SCAN INDICATIONS: Chest pain. The patient's baseline EKG reveals sinus rhythm, nonspecific ST-T changes. Resting heart rate 59, blood pressure 118/84 mmHg. The patient received intravenous Lexiscan per protocol. During the test, the patient did not experience any significant symptoms. There were nondiagnostic EKG changes and no arrhythmias. Cardiolite images do not reveal any evidence of ischemia. Left ventricular cavity is dilated. Fixed defect in the inferior segment most likely from scar from old myocardial infarction. IMPRESSION: 1. No evidence of ischemia on the scan. 2. Dilated left ventricular cavity. 3. Fixed defect in the inferior segment most likely from scar from old myocardial infarction. 4. Ejection fraction, severely depressed calculated at 23%. [id number]
[2016-09-08] MEDS ORDERED: WARFARIN 3 MG TAB PO SCH (18:00)
[2016-09-08] MEDS ORDERED: WARFARIN 2 MG TAB PO SCH (18:00)
[2016-09-08] MEDS ORDERED: ALLOPURINOL 100 MG TAB PO SCH ×2 (21:00)
[2016-09-08] MEDS ORDERED: Loratadine 10 MG TAB PO SCH (21:00)
[2016-09-08] MEDS ORDERED: METOPROLOL (TOPROL-XL) 25 MG TAB PO SCH (21:00)
[2016-09-08] MEDS ORDERED: TAMSULOSIN HCL 0.4 MG CAP PO SCH (21:00)
== END 2016-09-08 16:05 | DRG 291 ==
LOC: EEVIPCON 22:59 → ED 22:59 → PCU 09-08 01:06
PROVIDERS: ADMIT Internal Medicine; ATTEND Internal Medicine
DX: I13.0 Hypertensive heart and chronic kidney disease with heart failure and stage 1 through stage 4 chronic kidney disease, or unspecified chronic kidney disease (principal); I50.23 Acute on chronic systolic (congestive) heart failure; N18.3 Chronic kidney disease, stage 3 (moderate); Z79.01 Long term (current) use of anticoagulants; E87.6 Hypokalemia; I25.10 Atherosclerotic heart disease of native coronary artery without angina pectoris; E78.00 Pure hypercholesterolemia, unspecified; Z95.0 Presence of cardiac pacemaker; N40.0 Benign prostatic hyperplasia without lower urinary tract symptoms; Z79.899 Other long term (current) drug therapy
CPT/HCPCS: 36415; 71010; 78452; 80048; 80053; 80061; 83735; 83880; 84484; 85025; 85027; 85610; 85730; 93005; 93017; 93306; 94640; 96372; 98960; 99285; A4216; A9500; J1650; J1940; J2405; J2785; J3490